=== PATIENT | male | born 1950 | race Caucasian/White ===

== ENCOUNTER 2019-06-11 06:02 | Day surgery (SDC) | payer OTHER ==
[2019-06-06 12:34] VITALS: BMI 25.2
[2019-06-11] MEDS ORDERED: MIDAZOLAM HCL 2 MG/2 ML SINGLE DOSE VIAL ONE ×2 (06:53)
[2019-06-11] MEDS ORDERED: PROPOFOL 20 ML ONE ×3 (06:53→08:58)
[2019-06-11] MEDS ORDERED: ERYTHROMYCIN 0.5% OPHTHALMIC OINTMENT 3.5 GM TUBE ONE (07:08)
[2019-06-11] MEDS ORDERED: POVIDONE-IODINE 5% OPHTHALMIC PREP 30 ML SOLUTION ONE (07:08)
[2019-06-11] MEDS ORDERED: TETRACAINE 0.5% OPHTH SOLN 2 ML BOTTLE ONE (07:08)
[2019-06-11] MEDS ORDERED: LIDOCAINE 1%/EPI 1:100000 (20 ML MULTI DOSE VIAL) ONE (07:08)
[2019-06-11] MEDS ORDERED: BUPIVACAINE HCL/PF 0.5% (5MG/ML) 10 ML VIAL ONE (07:08)
[2019-06-11] MEDS ORDERED: ceFAZolin SODIUM 1 GM VIAL ONE (08:21)
[2019-06-11] MEDS ORDERED: GLYCOPYRROLATE 0.2 MG/1 ML VIAL ONE (08:21)
[2019-06-11] MEDS ORDERED: ONDANSETRON 4 MG/2 ML VIAL ONE ×2 (10:02→11:10)
[2019-06-11] MEDS ORDERED: DEXAMETHASONE SOD PHOSPHATE 4 MG/1 ML VIAL ONE (10:02)
[2019-06-11] MEDS ORDERED: oxyCODONE HCL 5 MG TABLET PO PRN (10:18)
[2019-06-11] MEDS ORDERED: ONDANSETRON 4 MG/2 ML VIAL IVPUSH PRN (10:18)
[2019-06-11] MEDS ORDERED: LACTATED RINGERS SOLUTION 1,000 ML IV SCH (10:30)
[2019-06-11 12:52] VITALS: TEMP 98.6
[2019-06-11 12:56] VITALS: BP 120/70; PULSE 52
--- NOTE | 2019-06-11 15:06 | OP ---
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 PROCEDURE: 1. Debridement, tailoring of defect right lower lid. 2. Lateral myocutaneous flap from right lateral canthus to right lower lid. 3. Right lateral canthoplasty. SURGEON: Eugenio Colvin MD ANESTHESIA: Local with sedation. COMPLICATIONS: None. ESTIMATED BLOOD LOSS: 5 mL. OPERATIVE REPORT: Patient was brought to the operating room, placed on the operating table. Vital signs monitored by anesthesia. Tetracaine was placed in both eyes. The wound was photographed following which a time-out was performed and then a 50/50 mixture of 2% Xylocaine, 1:100,000 epinephrine, 0.5% Marcaine was drawn up. The high arch lateral canthal line was marked in preparation for lateral myocutaneous rotational flap and then the anesthetic injected diffusely throughout the right lateral canthus down to periosteum throughout the semicircular flap and throughout the right lower lid. The patient was prepped and draped in the usual sterile fashion exposing both eyes and the right ear. The left eye was manually closed. Anesthesia was converted over to LMA due to the patient's obstruction. The left eye was closed throughout the case. The medial rim of the wound was just a millimeter or 2 lateral to the punctum, and lateral to this, the edge of the lateral eyelid remnant need medial remnant were then freshened up with a No. 11 blade tangential scraping. Small tarsal exposure was created with No. 11 blade to allow suturing of the tarsal plate securely lateral to the punctum. Two 6-0 silk sutures were then passed through the margin, 1 through the anterior lash line, 1 through the start mucocutaneous junction. These were tightened, and then two-three 6-0 Vicryl sutures taken partial-thickness. Tarsal bites were then used to anastomose the exposed tarsal plates once the margin had been lined up, and these were placed tightly to take the tension off of the marginal closure and align the tarsal plate. The anterior silk and posterior silk were now tied and then a 3rd [id number]-lspi-near suture of 6-0 silk was passed through the central weinberg line avoiding the punctum, and this was tied to complete the marginal repair. These were looped superiorly, and the muscle layer was closed with 6-0 Vicryl. Skin muscle flap was developed medially, and in this portion of the eyelid where the redundant skin existed, it was allowed to unfurl along the anterior aspect of the defect and was sutured into place with buried 6-0 Vicryl and then with interrupted and running 6-0 plain with plastic technique without vertical tension on the eyelid. The marginal sutures were lifted infranasally and secured to the skin with a 6-0 silk air knot to keep them away from the cornea. A ruler was then used to measure the horizontal width of the contralateral palpebral fissure, which measured 31-32 mm. Similar width was determined on this side and the ride side and marked with a marking pen and then the lateral canthus was reformed with buried 5-0 chromics through the weinberg line of the upper lid and through the advanced skin muscle flap of the lower lid. Lateral to this, a myocutaneous flap was supported to the periosteum lateral to the orbital rim with a double-arm 5-0 Vicryl suture. The muscle tissues were then closed with 6-0 Vicryl after antibiotic irrigation and hemostasis and then the skin was closed with interrupted and running 6-0 plain suture. Attention was turned to the lateral canthus, and meticulous tailoring was carried out at the lateral canthus to create a nice almond shape removing excess tissue and to create a nice, smooth lower lid to be relatively symmetric with the contralateral side, and this was reinforced with interrupted 6-0 silk sutures as needed. Erythromycin ointment was placed in the eye and on the sutures of the right lower lid and the lateral canthus, and the patient was then taken to the recovery room after awakening from anesthesia in stable condition. EUGENIO COLVIN M.D. [id number]
== END 2019-06-11 12:50 | disposition home or self-care (01) ==
LOC: FASU 06:02
PROVIDERS: ATTEND Ophthalmology
PROC: 0KX10Z2 Transfer Facial Muscle with Skin and Subcutaneous Tissue, Open Approach (ICD-10-PCS; 2019-06-11)
PROC: 0JB10ZZ Excision of Face Subcutaneous Tissue and Fascia, Open Approach (ICD-10-PCS; principal; 2019-06-11 08:44)
DX: H02.89 Other specified disorders of eyelid (principal); Z85.828 Personal history of other malignant neoplasm of skin
CPT/HCPCS: 94760